=== PATIENT | female | born 1995 | race Hispanic/Latino ===

== ENCOUNTER 2019-11-26 10:12 | Emergency (ER) | payer BC, OTHER ==
[2019-11-26] MEDS ORDERED: METOCLOPRAMIDE 10 MG/2mL INJ ONE (11:15)
[2019-11-26] MEDS ORDERED: DIPHENHYDRAMINE 50 MG/ML VIAL ONE (11:15)
[2019-11-26] MEDS ORDERED: NA CHLORIDE 0.9% 1,000 ML ONE (11:16)
--- NOTE | 2019-11-26 12:40 | ER ---
Nurse's Notes [facility] Name: Korin Conklin Age: 24 yrs Sex: Female : 1995 Arrival Date: 11/26/2019 Time: 10:14 Bed 15 Private MD: Diagnosis: Migraine Presentation: 11/25 10:40 Chief complaint: Patient states: started trazodone 25-50 mg yesterday, also had paxil iw increased to 30 mg yesterday, pt states she did not sleep much last night, also has pounding headache and vomiting with sudden movement, has hx of migraines but this h/a feels different. Coronavirus screen: Proceed with normal triage. Patient denies a cough. Patient denies shortness of breath or difficulty breathing. Patient denies measured and/or subjective temperature greater than 100.4F prior to today's visit. Patient denies travel on a cruise ship or to a country the [facility] currently lists as an affected area. Patient denies contact with known and/or suspected case of COVID-19. Ebola Screen: Patient negative for fever greater than or equal to 101.5 degrees Fahrenheit, and additional compatible Ebola Virus Disease symptoms Patient denies exposure to infectious person. Patient denies travel to an Ebola-affected area in the 21 days before illness onset. No symptoms or risks identified at this time. Initial Sepsis Screen: Does the patient meet any 2 criteria? No. Patient's initial sepsis screen is negative. Does the patient have a suspected source of infection? No. Patient's initial sepsis screen is negative. Risk Assessment: Do you want to hurt yourself or someone else? Patient reports no desire to harm self or others. Onset of symptoms was November 26, 2019. 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 - Social history:: Smoking status: Patient denies any tobacco usage or history of. Screenin:33 Abuse screen: Denies threats or abuse. Nutritional screening: No deficits noted. Tuberculosis screening: No symptoms or risk factors identified. Fall Risk None identified. Assessment: 11:05 General: Appears in no apparent distress. Behavior is calm. Pain: Complains of pain in forehead Pain does not radiate. Pain currently is 3 out of 10 on a pain scale. Quality of pain is described as throbbing, Pain began 1 day ago. Neuro: Level of Consciousness is awake, alert, Oriented to person, place, time. Cardiovascular: Heart tones S1 S2 present. Respiratory: Airway is patent Respiratory effort is even, unlabored, Respiratory pattern is regular, symmetrical. GI: Bowel sounds present X 4 quads. Abd is non tender Reports nausea, vomiting, today. : No signs and/or symptoms were reported regarding the genitourinary system. EENT: No signs and/or symptoms were reported regarding the EENT system. Derm: No signs and/or symptoms reported regarding the dermatologic system. Musculoskeletal: No signs and/or symptoms reported regarding the musculoskeletal system. Vital Signs: 10:40 BP 120 / 85; Pulse 66; Resp 16; Temp 98.0; Pulse Ox 98% on R/A; Weight 53.52 kg; Height iw 5 ft. 0 in. (152.40 cm); Pain 3/10; 12:34 BP 112 / 81; Pulse 51; Resp 16; Pulse Ox 100% ; ah 10:40 Body Mass Index 23.05 (53.52 kg, 152.40 cm) iw ED Course: 10:14 Patient arrived in ED. as 10:34 Maverick Vargas PA is PHCP. jr8 10:34 Osiel Monroe MD is Attending Physician. jr8 10:43 Triage completed. iw 10:44 Arm band placed on. iw 11:07 Judith Armstrong, RN is Primary Nurse. 11:12 Inserted saline lock: 22 gauge in right antecubital area, using aseptic technique. kj1 12:34 Patient has correct armband on for positive identification. Call light in reach. Side rails up X 1. 13:15 No provider procedures requiring assistance completed. IV discontinued, intact, bleeding controlled, No redness/swelling at site. Pressure dressing applied. Administered Medications: 11:10 Drug: Reglan 10 mg Route: IVP; Site: right antecubital; 13:59 Follow up: Response: No adverse reaction 11:10 Drug: Benadryl 25 mg Route: IVP; Site: right antecubital; 13:59 Follow up: Response: No adverse reaction 11:10 Drug: NS 0.9% 1000 ml Route: IV; Rate: 1000 ml; Site: right antecubital; 13:59 Follow up: Response: No adverse reaction; IV Status: Completed infusion Outcome: 12:39 Discharge ordered by MD. miguel 13:15 Discharged to home ambulatory. 13:15 Condition: good 13:15 Discharge instructions given to patient, Instructed on discharge instructions, follow up and referral plans. Demonstrated understanding of instructions, follow-up care. 14:00 Patient left the ED. Signatures: Nguyen Dowling Irene, JOSSELYN ARCOS Maverick Vargas PA PA jr8 Zully Flood kj1 Judith Armstrong RN RN
--- NOTE | 2019-11-26 12:40 | EDPHYS ---
Physician Documentation [facility] Name: Korin Conklin Age: 24 yrs Sex: Female : 1995 Arrival Date: 11/26/2019 Time: 10:14 Bed 15 Private MD: ED Physician Osiel Monroe HPI: 11/25 11:53 This 24 yrs old Female presents to ER via Ambulatory with complaints of jr8 Headache, Vomiting. 11:53 The patient complains of pain to the diffuse. The patient describes the headache as jr8 throbbing. Onset: The symptoms/episode began/occurred acutely, yesterday. Associated signs and symptoms: Pertinent positives: malaise, nausea, vomiting. Severity of symptoms: At its worst the pain was moderate, in the emergency department the pain is unchanged. Headache History: The patient has had previous headaches and this one is similar to previous episodes. The symptoms are alleviated by nothing. the symptoms are aggravated by movement. The patient has not experienced similar symptoms in the past. The patient has not recently seen a physician. Stated that headache has been persistent since yesterday. Tried to take home medication but vomited and now is dizzy . 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 - Social history:: Smoking status: Patient denies any tobacco usage or history of. ROS: 11:53 Eyes: Negative for injury, pain, redness, and discharge, ENT: Negative for injury, jr8 pain, and discharge, Neck: Negative for injury, pain, and swelling, Cardiovascular: Negative for chest pain, palpitations, and edema, Respiratory: Negative for shortness of breath, cough, wheezing, and pleuritic chest pain, Back: Negative for injury and pain. 11:53 Abdomen/GI: Positive for nausea and vomiting, Negative for abdominal pain, diarrhea, constipation, abdominal cramps, abdominal distension. 11:53 Neuro: Positive for dizziness, headache. Exam: 11:53 Eyes: Pupils equal round and reactive to light, extra-ocular motions intact. Lids and jr8 lashes normal. Conjunctiva and sclera are non-icteric and not injected. Cornea within normal limits. Periorbital areas with no swelling, redness, or edema. ENT: Nares patent. No nasal discharge, no septal abnormalities noted. Tympanic membranes are normal and external auditory canals are clear. Oropharynx with no redness, swelling, or masses, exudates, or evidence of obstruction, uvula midline. Mucous membranes moist. Neck: Trachea midline, no thyromegaly or masses palpated, and no cervical lymphadenopathy. Supple, full range of motion without nuchal rigidity, or vertebral point tenderness. No Meningismus. Cardiovascular: Regular rate and rhythm with a normal S1 and S2. No gallops, murmurs, or rubs. Normal PMI, no JVD. No pulse deficits. Respiratory: Lungs have equal breath sounds bilaterally, clear to auscultation and percussion. No rales, rhonchi or wheezes noted. No increased work of breathing, no retractions or nasal flaring. Abdomen/GI: Soft, non-tender, with normal bowel sounds. No distension or tympany. No guarding or rebound. No evidence of tenderness throughout. Back: No spinal tenderness. No costovertebral tenderness. Full range of motion. Skin: Warm, dry with normal turgor. Normal color with no rashes, no lesions, and no evidence of cellulitis. MS/ Extremity: Pulses equal, no cyanosis. Neurovascular intact. Full, normal range of motion. Neuro: Awake and alert, GCS 15, oriented to person, place, time, and situation. Cranial nerves II-XII grossly intact. Motor strength 5/5 in all extremities. Sensory grossly intact. Cerebellar exam normal. Normal gait. Vital Signs: 10:40 BP 120 / 85; Pulse 66; Resp 16; Temp 98.0; Pulse Ox 98% on R/A; Weight 53.52 kg; Height iw 5 ft. 0 in. (152.40 cm); Pain 3/10; 12:34 BP 112 / 81; Pulse 51; Resp 16; Pulse Ox 100% ; ah 10:40 Body Mass Index 23.05 (53.52 kg, 152.40 cm) iw MDM: 10:34 Patient medically screened. jr8 12:39 Data reviewed: vital signs, nurses notes, and as a result, I will discharge patient. jr8 Data interpreted: Pulse oximetry: on room air is 100 %. Interpretation: normal. Counseling: I had a detailed discussion with the patient and/or guardian regarding: the historical points, exam findings, and any diagnostic results supporting the discharge/admit diagnosis, the need for outpatient follow up, a family practitioner, to return to the emergency department if symptoms worsen or persist or if there are any questions or concerns that arise at home. Response to treatment: the patient's symptoms have resolved after treatment. 11/25 10:59 Order name: IV; Complete Time: 11:25 jr8 Administered Medications: 11:10 Drug: Reglan 10 mg Route: IVP; Site: right antecubital; 13:59 Follow up: Response: No adverse reaction 11:10 Drug: Benadryl 25 mg Route: IVP; Site: right antecubital; 13:59 Follow up: Response: No adverse reaction 11:10 Drug: NS 0.9% 1000 ml Route: IV; Rate: 1000 ml; Site: right antecubital; 13:59 Follow up: Response: No adverse reaction; IV Status: Completed infusion Disposition: 15:56 Co-signature as Attending Physician, Osiel Monroe MD I agree with the assessment and kdr plan of care. Disposition: 11/26/19 12:39 Discharged to Home. Impression: Migraine. - Condition is Stable. - Discharge Instructions: Migraine Headache. - Medication Reconciliation Form, Thank You Letter, Antibiotic Education, Prescription Opioid Use form. - Follow up: Private Physician; When: 2 - 3 days; Reason: Recheck today's complaints, Continuance of care, Re-evaluation by your physician. - Problem is new. - Symptoms have improved. Signatures: Osiel Monroe MD MD [facility] Regina Hassan RN RN Maverick Vargas PA PA 8 Judith Armstrong RN RN Corrections: (The following items were deleted from the chart) 14:00 12:39 11/26/2019 12:39 Discharged to Home. Impression: Migraine. Condition is Stable. ah Forms are Medication Reconciliation Form, Thank You Letter, Antibiotic Education, Prescription Opioid Use. Follow up: Private Physician; When: 2 - 3 days; Reason: Recheck today's complaints, Continuance of care, Re-evaluation by your physician. Problem is new. Symptoms have improved. jr8
[2019-11-27 02:30] VITALS: TEMP 98
[2019-11-27 02:31] VITALS: BP 112/81; O2SAT 100
== END 2019-11-26 14:00 | disposition home or self-care (01) ==
LOC: ER 10:12
DX: G43.909 Migraine, unspecified, not intractable, without status migrainosus (principal); F41.9 Anxiety disorder, unspecified
CPT/HCPCS: 96361; 96375; 96374; 99283; J2765; J1200; J7030